=== PATIENT | female | born 1995 | race Caucasian/White ===

== ENCOUNTER 2017-09-21 14:12 | Emergency (ER) | payer OTHER ==
[~2017-09-21] VITALS: Ht 167.6 cm; Wt 58.4 kg
[2017-09-21 14:16] VITALS: TEMP 36.6; Ht 167.6 cm; Wt 58.4 kg
[2017-09-21] MEDS ORDERED: KETOROLAC TROMETHAMINE 30 MG/ML VIAL IV STA (14:30)
[2017-09-21] MEDS ORDERED: SODIUM CHLORIDE 0.9% 1000ML 2,000 ML IV STA (14:30)
[2017-09-21] MEDS ORDERED: LOPERAMIDE HCL 2 MG CAP PO STA (14:30)
[2017-09-21] MEDS ORDERED: ONDANSETRON INJ 2 MG/ML 2 ML VIAL IV STA (14:30)
--- NOTE | 2017-09-21 14:35 | EMERGENCY ROOM VISIT NOTE ---
History Report prepared by Trina: Daniel Burton Under the Supervision of: Dr. Ward Saldaña M.D. First contact with patient: 14:21 Chief Complaint: ILLNESS Stated Complaint: STOMACH VIRUS History of Present Illness The patient is a 22 year old female who presents to the Emergency Room with complaints of a persistent illness that started 4 days ago. She states that she has been around people with similar symptoms, but they have gotten healthy, and she is still sick. The patient says that she started off with vomiting, diarrhea , and chills the day of the onset of the illness. She notes that she has been still intermittently having episodes of vomiting and diarrhea over the past few days. She says that she has been having diarrhea 2 to 3 times per day. The patient states that she has been having mostly lower abdominal pain. She describes her pain as stomach cramps, with a "rumbling" and shooting pain. The patient adds that at times she cannot keep any fluids down, and eating makes her always have diarrhea soon afterward. She states that she has also been having a temperature of around 100 the past few days. She has been taking Tylenol for her temperature. The patient denies any urinary symptoms or hematochezia. She notes that her urine is dark at the times she is unable to keep her liquids down. The patient states that she has not eaten any abnormal foods that would have caused this illness. She notes no chronic pertinent medical problems. The patient says that she has no history of abdominal surgeries. Source of History: patient Onset: 4 days ago Position: other (global) Quality: other (illness) Associated Symptoms: + fevers, + chills, + vomiting, + abdominal pain, + diarrhea, No hematochezia, No urinary symptoms Note: Associated symptoms: Hard to keep down food and liquids. Review of Systems See HPI for pertinent positives & negatives. A total of 10 systems reviewed and were otherwise negative. Past Medical & Surgical Medical Problems: (1) No chronic diseases present Family History No pertinent family history Social History Smoking Status: Never Smoker Marital Status: single Housing Status: lives with roommate Occupation Status: student Current/Historical Medications Scheduled Control Pills ( Control Pills), 1 TAB PO DAILY Ondasetron Odt (Zofran Odt), 4 MG SL Q6H Allergies Coded Allergies: No Known Allergies (Unverified , 09/21/17) Physical Exam Vital Signs Date Time Temp Pulse Resp B/P (MAP) Pulse Ox O2 Delivery O2 Flow Rate FiO2 09/21/17 17:21 70 16 107/78 100 Room Air 09/21/17 14:16 36.6 104 20 115/73 99 Room Air Physical Exam GENERAL: Patient is in no acute distress. HEENT: No acute trauma, normocephalic atraumatic, mucous membranes dry, no nasal congestion, no scleral icterus. NECK: No stridor, no adenopathy, no meningismus, trachea is midline. LUNGS: Clear to auscultation bilaterally, no wheeze, no rhonchi, breath sounds equal. HEART: Without murmurs gallops or rubs, regular rate and rhythm. ABDOMEN: Mildly diffusely tender. Soft, bowel sounds positive, no hernias, no peritonitis. EXTREMITIES: No cyanosis or edema, full range of motion of all the joints without pain or difficulty, no signs for acute trauma. NEUROLOGIC: Oriented x 3, no acute motor or sensory deficits, no focal weakness. SKIN: No rash, no jaundice, no diaphoresis. Medical Decision & Procedures ER Provider Diagnostic Interpretation: X-ray results as stated below per interpretation by me and the radiologist: ABDOMEN 2VIEW W/PA CHEST RTN HISTORY: 22 years-old Female pain, vomiting acute generalized abdominal pain with vomiting COMPARISON: None available TECHNIQUE: PA view the chest with erect and supine views of the abdomen FINDINGS: Cardiomediastinal and hilar silhouettes are within normal limits. There is no pneumothorax, pleural effusion, focal airspace consolidation or overt pulmonary edema. The bones of the chest appear grossly intact. Bowel gas pattern is nonobstructive. No pneumatosis or pneumoperitoneum. No urolith. No organomegaly or fracture identified. IMPRESSION: 1. No acute processes of the chest. 2. Nonobstructive bowel gas pattern without pneumoperitoneum. The above report was generated using voice recognition software. It may contain grammatical, syntax or spelling errors. Electronically signed by: Huy Prescott M.D. 09/21/2017 3:10 PM Dictated Date/Time: 09/21/2017 3:07 PM Laboratory Results 09/21/17 14:43 Red Blood Count 4.61, Mean Corpuscular Volume 90.9, Mean Corpuscular Hemoglobin 31.7, Mean Corpuscular Hemoglobin Concent 34.8, Mean Platelet Volume 9.7, Neutrophils (%) (Auto) 65.1, Lymphocytes (%) (Auto) 24.7, Monocytes (%) (Auto) 8.2, Eosinophils (%) (Auto) 1.8, Basophils (%) (Auto) 0.2, Neutrophils # (Auto) 3.96, Lymphocytes # (Auto) 1.50, Monocytes # (Auto) 0.50, Eosinophils # (Auto) 0.11, Basophils # (Auto) 0.01 09/21/17 14:43 Test 09/21/17 14:39 09/21/17 14:43 Urine Color DK YELLOW Urine Appearance CLOUDY (CLEAR) Urine pH 6.0 (4.5-7.5) Urine Specific Jacob 1.020 (1.000-1.030) Urine Protein NEG (NEG) Urine Glucose (UA) NEG (NEG) Urine Ketones NEG (NEG) Urine Occult Blood NEG (NEG) Urine Nitrite NEG (NEG) Urine Bilirubin NEG (NEG) Urine Urobilinogen NEG (NEG) Urine Leukocyte Esterase TRACE (NEG) Urine WBC (Auto) 10-30 /hpf (0-5) Urine RBC (Auto) 0-4 /hpf (0-4) Urine Hyaline Casts (Auto) 5-10 /lpf (0-5) Urine Epithelial Cells (Auto) >30 /lpf (0-5) Urine Bacteria (Auto) 1+ (NEG) White Blood Count 6.08 K/uL (4.8-10.8) Red Blood Count 4.61 M/uL (4.2-5.4) Hemoglobin 14.6 g/dL (12.0-16.0) Hematocrit 41.9 % (37-47) Mean Corpuscular Volume 90.9 fL (80-100) Mean Corpuscular Hemoglobin 31.7 pg (25-34) Mean Corpuscular Hemoglobin Concent 34.8 g/dl (32-36) Platelet Count 194 K/uL (130-400) Mean Platelet Volume 9.7 fL (7.4-10.4) Neutrophils (%) (Auto) 65.1 % Lymphocytes (%) (Auto) 24.7 % Monocytes (%) (Auto) 8.2 % Eosinophils (%) (Auto) 1.8 % Basophils (%) (Auto) 0.2 % Neutrophils # (Auto) 3.96 K/uL (1.4-6.5) Lymphocytes # (Auto) 1.50 K/uL (1.2-3.4) Monocytes # (Auto) 0.50 K/uL (0.11-0.59) Eosinophils # (Auto) 0.11 K/uL (0-0.5) Basophils # (Auto) 0.01 K/uL (0-0.2) RDW Standard Deviation 43.1 fL (36.4-46.3) RDW Coefficient of Variation 13.0 % (11.5-14.5) Immature Granulocyte % (Auto) 0.0 % Immature Granulocyte # (Auto) 0.00 K/uL (0.00-0.02) Anion Gap 4.0 mmol/L (3-11) Est Creatinine Clear Calc Drug Dose 86.2 ml/min Estimated GFR () 98.7 Estimated GFR (Non- 85.1 BUN/Creatinine Ratio 8.0 (10-20) Calcium Level 9.0 mg/dl (8.5-10.1) Magnesium Level 2.1 mg/dl (1.8-2.4) Total Bilirubin 0.5 mg/dl (0.2-1) Aspartate Amino Transf (AST/SGOT) 16 U/L (15-37) Alanine Aminotransferase (ALT/SGPT) 19 U/L (12-78) Alkaline Phosphatase 73 U/L (45-117) Total Protein 7.6 gm/dl (6.4-8.2) Albumin 3.5 gm/dl (3.4-5.0) Globulin 4.1 gm/dl (2.5-4.0) Albumin/Globulin Ratio 0.9 (0.9-2) Lipase 119 U/L (73-393) Laboratory results reviewed by me. Medications Administered Medications (Trade) Dose Ordered Sig/Marylin Route Start Time Stop Time Status Last Admin Dose Admin Sodium Chloride 2,000 ml @ 999 mls/hr Q2H1M STAT IV 09/21/17 14:30 09/21/17 16:30 DC 09/21/17 14:41 999 MLS/HR Ondansetron HCl (Zofran Inj) 4 mg NOW STAT IV 09/21/17 14:30 09/21/17 14:34 DC 09/21/17 14:39 4 MG Ketorolac Tromethamine (Toradol Inj) 30 mg NOW STAT IV 09/21/17 14:30 09/21/17 14:34 DC 09/21/17 14:40 30 MG Loperamide HCl (Imodium Cap) 4 mg NOW STAT PO 09/21/17 14:30 09/21/17 14:34 DC 09/21/17 14:39 4 MG ED Course 1423: The patient was evaluated in room C2B. A complete history and physical exam was performed. 1430: Imodium Cap 4 mg PO, Toradol Inj 30 mg IV, Zofran Inj 4 mg IV, NSS 2000 ml @ 999 msl/hr IV. 1618: I reevaluated the patient and she is doing fine. She was updated on the results. The patient will go home after she gets her fluids. She is agreeable with this plan. 1635: Reevaluated the patient. Discussed results and discharge instructions: she verbalized understanding and agreement. The patient is ready for discharge. Medical Decision Differential diagnosis includes but is not limited to food borne or viral illness, dehydration, electrolyte imbalance, anemia, rotavirus, E. coli infection. There is no leukocytosis or concerning anemia. No significant electrolyte abnormality, kidney failure, hepatitis or pancreatitis. Urinalysis does not show evidence for infection. Obstruction series shows no pneumonia, free air or bowel obstruction. The patient received IV Toradol, IV saline and IV Zofran. She was given oral Imodium. The patient feels markedly better. I do think she can be discharged. This illness is likely viral. She will be discharged with Zofran, a bland diet, Tylenol and rest. Medication Reconcilliation Current Medication List: was personally reviewed by me Blood Pressure Screening Patient's blood pressure: Normal blood pressure Impression Primary Impression: Dehydration Additional Impression: Nausea vomiting and diarrhea Scribe Attestation The scribe's documentation has been prepared under my direction and personally reviewed by me in its entirety. I confirm that the note above accurately reflects all work, treatment, procedures, and medical decision making performed by me. Departure Information Dispostion Home / Self-Care Prescriptions Ondasetron Odt (ZOFRAN ODT) 4 Mg Tab 4 MG SL Q6H for Nausea, #10 TAB Prov: Ward Saldaña M.D. 09/21/17 Referrals No Doctor, Assigned Forms HOME CARE DOCUMENTATION FORM, IMPORTANT VISIT INFORMATION, WORK / SCHOOL INSTRUCTIONS Patient Instructions [facility] Additional Instructions bland diet--crackers, soup, toast, gatorade, rice zofran 1 tab every 6 hours as needed for nausea may use otc immodium for diarrhea if needed tylenol for aches and fever and pain rest return if worsening lab testing today was all ok Problem Qualifiers
[2017-09-21 14:53] LABS: BASO % 0.2 %; BASO ABS # 0.01 K/uL (0-0.2); EOS % 1.8 %; EOS ABS # 0.11 K/uL (0-0.5); HEMATOCRIT 41.9 % (37-47); HEMOGLOBIN 14.6 g/dL (12.0-16.0); LYMPH % 24.7 %; MEAN CELL VOLUME 90.9 fL (80-100); MEAN CORPUSCULAR HEMOGLOBIN 31.7 pg (25-34); MEAN CORPUSCULAR HGB CONC 34.8 g/dl (32-36); MEAN PLATELET VOLUME 9.7 fL (7.4-10.4); MONO % 8.2 %; NEUT % 65.1 %; NEUT ABS # 3.96 K/uL (1.4-6.5); PLATELET COUNT 194 K/uL (130-400); RED CELL DISTRIBUTION WIDTH SD 43.1 fL (36.4-46.3); WHITE BLOOD COUNT 6.08 K/uL (4.8-10.8)
[2017-09-21] MEDS ORDERED: BCPILLS PO (14:53)
[2017-09-21 15:08] LABS: ALBUMIN 3.5 gm/dl (3.4-5.0)
[2017-09-21 15:11] LABS: CREATININE 0.96 mg/dl (0.60-1.20)
--- NOTE | 2017-09-21 15:11 | DIAGNOSTIC IMAGING REPORT ---
ABDOMEN 2VIEW W/PA CHEST RTN HISTORY: 22 years-old Female pain, vomiting acute generalized abdominal pain with vomiting COMPARISON: None available TECHNIQUE: PA view the chest with erect and supine views of the abdomen FINDINGS: Cardiomediastinal and hilar silhouettes are within normal limits. There is no pneumothorax, pleural effusion, focal airspace consolidation or overt pulmonary edema. The bones of the chest appear grossly intact. Bowel gas pattern is nonobstructive. No pneumatosis or pneumoperitoneum. No urolith. No organomegaly or fracture identified. IMPRESSION: 1. No acute processes of the chest. 2. Nonobstructive bowel gas pattern without pneumoperitoneum. The above report was generated using voice recognition software. It may contain grammatical, syntax or spelling errors. Electronically signed by: Huy Prescott M.D. 09/21/2017 3:10 PM Dictated Date/Time: 09/21/2017 3:07 PM
[2017-09-21 15:14] LABS: TOTAL PROTEIN 7.6 gm/dl (6.4-8.2)
[2017-09-21] MEDS ORDERED: SODIUM CHLORIDE 0.9% 1000ML 1,000 ML IV STA (16:27)
[2017-09-21] MEDS ORDERED: ONDA4TAB10 SL (16:32)
[2017-09-21 17:21] VITALS: BP 107/78; PULSE 70; O2SAT 100
== END 2017-09-21 17:24 | disposition home or self-care (01) ==
LOC: C.EDB 14:15 → C.EDC 17:24
DX: E86.0 Dehydration (principal); R11.2 Nausea with vomiting, unspecified; R19.7 Diarrhea, unspecified